=== PATIENT | female | born 1995 | race Caucasian/White ===

== ENCOUNTER 2024-11-28 19:19 | Emergency (ER) | payer OTHER ==
[2024-11-28] MEDS: CHARCOAL/SORBITOL SOLUTION 25 GM/120 ML BTL PO ONE ×2 (20:00→20:15)
[2024-11-28] MEDS ORDERED: CHARCOAL/WATER SOLUTION 25 GM/120 ML TUBE ONE (20:01)
[2024-11-28 20:25] VITALS: RESP 18; BMI 44.9
[2024-11-28 20:58] LABS: VENOUS BASE EXCESS -7.6 mmol/L (-2-2); VENOUS O2 SATURATION 68.2 % (70-80); VENOUS PCO2 34.9 mmHg (38-52); VENOUS PH 7.322 (7.310-7.410)
[2024-11-28 21:01] LABS: BASO % 1.1 % (0-2.0); EOS % 1.2 % (0-4.5); HEMATOCRIT 36.2 % (32.4-45.2); HEMOGLOBIN 11.5 GM/dL (10.7-15.3); MCH 24.6 pg (25.7-33.7); MCHC 31.8 g/dl (32.0-36.0); MEAN CELL VOLUME 77.3 fl (80-96); NEUT % 65.7 % (42.8-82.8); PLATELET COUNT 268 10^3/uL (134-434); RBC 4.68 M/mm3 (3.60-5.2)
[2024-11-28 21:03] LABS: PH,URINE 5.5 (5.0-8.0); URINE APPEARANCE CLEAR; URINE BILIRUBIN NEGATIVE (NEGATIVE); URINE COLOR YELLOW; URINE GLUCOSE (UA) NEGATIVE (NEGATIVE); URINE KETONE NEGATIVE (NEGATIVE); URINE LEUK ESTERASE NEGATIVE (NEGATIVE); URINE NITRITE NEGATIVE (NEGATIVE); URINE PROTEIN NEGATIVE (NEGATIVE); URINE UROBILINOGEN 0.2 mg/dL (0.2-1.0)
[2024-11-28 21:11] LABS: COCAINE, UR NEGATIVE (NEGATIVE); METHADONE, UR NEGATIVE (NEGATIVE); OPIATES, URI NEGATIVE (NEGATIVE); URINE AMPHETAMINES NEGATIVE (NEGATIVE); URINE BENZODIAZEPINES NEGATIVE (NEGATIVE)
[2024-11-28 21:12] LABS: PHENCYCLIDINE,URINE NEGATIVE (NEGATIVE)
[2024-11-28 21:16] LABS: ACTIVATED PTT 31.5 SECONDS (25.2-36.5); INR 1.17 (0.83-1.09); PROTHROMBIN TIME (PATIENT) 13.4 SEC (9.7-13.0)
[2024-11-28 21:19] LABS: URINE BARBITURATES NEGATIVE (NEGATIVE)
[2024-11-28 21:19] LABS: CHLORIDE 107 mmol/L (98-107); POTASSIUM 3.9 mmol/L (3.5-5.1); SODIUM 137 mmol/L (136-145)
[2024-11-28 21:20] LABS: ALBUMIN 3.5 g/dl (3.4-5.0); ANION GAP 9 mmol/L (4-13); BLOOD UREA NITROGEN 12.1 mg/dL (7-18); CALCIUM 9.1 mg/dL (8.5-10.1); CO2 21 mmol/L (21-32)
[2024-11-28 21:22] LABS: GLUCOSE,RANDOM 157 mg/dL (74-106); MAGNESIUM 2.2 mg/dL (1.8-2.4)
[2024-11-28 21:24] LABS: CREATININE 0.7 mg/dL (0.55-1.3); PHOSPHOROUS 2.9 mg/dL (2.5-4.9); SGOT/AST 16 U/L (15-37); SGPT/ALT 22 U/L (13-61)
[2024-11-28 21:25] LABS: BILIRUBIN,TOTAL 0.2 mg/dL (0.2-1); TOT PROT 7.4 g/dl (6.4-8.2)
[2024-11-28 21:27] LABS: ALK PHOS 101 U/L (45-117)
[2024-11-28] MEDS: LACTATED RINGERS SOLUTION 1000 ML INFUS.BAG IV ONE (21:47)
[2024-11-28 23:46] LABS: LACTIC ACID 2.3 mmol/L (0.4-2.0)
[2024-11-29] MEDS: MIDAZOLAM HCL 2 MG/2 ML SINGLE DOSE VIAL IVPUSH ONE (00:45)
[2024-11-29] MEDS ORDERED: LORazepam 1 MG TABLET ONE (00:49)
[2024-11-29] MEDS: LORazepam 2 MG TABLET PO ONE (00:58)
[2024-11-29 07:44] VITALS: BP 123/61; PULSE 76; TEMP 98.6
== END 2024-11-29 10:45 | disposition home or self-care (01) ==
LOC: JER 19:19
DX: R42 Dizziness and giddiness (principal); T39.1X1A Poisoning by 4-Aminophenol derivatives, accidental (unintentional), initial encounter; T45.0X1A Poisoning by antiallergic and antiemetic drugs, accidental (unintentional), initial encounter; R51.9 Headache, unspecified; R53.83 Other fatigue
CPT/HCPCS: 36415; 80053; 80307; 81003; 82550; 82803; 83605; 83735; 84100; 84484; 84703; 85025; 85610; 85730; 93005; 93010; 99291